=== PATIENT | female | born 2005 | race Two or more races ===

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

== ENCOUNTER 2025-01-06 14:04 | Emergency (ER) | payer OTHER ==
[~2025-01-06] VITALS: Ht 165.1 cm; Wt 71.6 kg
--- NOTE | 2025-01-06 14:41 | ED.PDOC ---
History of Present Illness HPI Comments 19-year-old female with no reported PMHx presents with a chief complaint of abnormal vaginal bleeding x onset this morning while being currently . Patient mentions that she saw an VIDEO AND SOUND RECORDER x 2 weeks ago and was told that she was 7 weeks by US. Patient is . Patient mentions that she was sitting down watching movie when she began to have sudden onset of vaginal bleeding and describes it as spotting with clots. Patient was recently seen here on 12/10/2024 for abdominal cramping. Patient at that time had a HGB of 14 and a Beta HCG at 1741. 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 Family History Family History: Reviewed,noncontributory to illness Social History Smoker: Non-Smoker Alcohol: Denies ETOH Use Drugs: Denies Drug Use Lives In: Home Constitutional: denies: chills, diaphoresis, fatigue, fever, malaise, sweats, weakness, others EENTM: denies: blurred vision, double vision, ear bleeding, ear discharge, ear drainage, ear pain, ear ringing, eye pain, eye redness, hearing loss, mouth pain, mouth swelling, nasal discharge, nose bleeding, nose congestion, nose pain, photophobia, tearing, throat pain, throat swelling, voice changes, others Respiratory: denies: cough, hemoptysis, orthopnea, SOB at rest, shortness of breath, SOB with excertion, stridor, wheezing, others Cardiovascular: denies: chest pain, dizzy spells, diaphoresis, Dyspnea on exertion, edema, irregular heart beat, left arm pain, lightheadedness, palpitations, PND, syncope, others Gastrointestinal: denies: abdomen distended, abdominal pain, blood streaked bowels, constipated, diarrhea, dysphagia, difficulty swallowing, hematemesis, melena, nausea, poor appetite, poor fluid intake, rectal bleeding, rectal pain, vomiting, others Genitourinary: reports: abnormal vagina bleeding, ; denies: burning, dyspareunia, dysuria, flank pain, frequency, hematuria, incontinence, pain, vagina discharge, urgency, others Neurological: denies: dizziness, fainting, headache, left sided numbness, left sided weakness, numbness, paresthesia, pre-existing deficit, right sided numbness, right sided weakness, seizure, speech problems, tingling, tremors, weakness, others Musculoskeletal: denies: back pain, gout, joint pain, joint swelling, muscle pain, muscle stiffness, neck pain, others Integumetry: denies: bruises, change in color, change in hair/nails, dryness, laceration, lesions, lumps, rash, wounds, others Allergic/Immunocompromised: denies: Difficulty Healing, Frequent Infections, Hives, Itching, others Hematologic/Lymphatic: denies: anemia, blood clots, easy bleeding, easy bruising, swollen glands, others Endocrine: denies: excessive hunger, excessive sweating, excessive thirst, excessive urination, flushing, intolerance to cold, intolerance to heat, unexplained weight gain, unexplained weight loss, others Psychiatric: denies: anxiety, bipolar disorder, depression, hopeless, panic disorder, schizophrenia, sleepless, suicidal, others All Other Systems: Reviewed and Negative Physical Exam General Appearance: No Apparent Distress, Normal HEENT: Normal ENT Inspection, Pharynx Normal, TMs Normal Neck: Full Range of Motion, Non-Tender, Normal, Normal Inspection Respiratory: Chest Non-Tender, Lungs Clear, No Accessory Muscle Use, No Respiratory Distress, Normal Breath Sounds Cardiovascular: No Edema, No JVD, No Murmur, No Gallop, Normal Peripheral Pulses, Regular Rate/Rhythm Breast Exam: Deferred Gastrointestinal: No Organomegaly, Non Tender, No Pulsatile Mass, Normal Bowel Sounds, Soft Genitalia: Deferred Pelvic: Deferred Rectal: Deferred Extremities: No calf tenderness, Normal capillary refill, Normal inspection, Normal range of motion, Non-tender, No pedal edema Musculoskeletal : Apperance: Normal Neurologic: Alert, associate counsel II-XII nml as Tested, No Motor Deficits, Normal Affect, Normal Mood, No Sensory Deficits Cerebellar Function: Normal Reflexes: Normal Skin: Dry, Normal Color, Warm Lymphatic: No Adenopathy Was a procedure done? Was a procedure done?: No Differential Dx Considerations may include: threatened ab, incomplete ab, complete ab, inevitable ab X-Ray, Labs, Meds, VS Vital Signs Date Time Temp Pulse Resp B/P (MAP) Pulse Ox O2 Delivery O2 Flow Rate FiO2 01/06/25 14:12 99.5 76 18 127/72 (90) 98 99.5 Lab Test 01/06/25 14:22 Range/Units Urine Color Light-yellow Yellow Urine Clarity Clear Clear Urine pH 7.0 5.0-9.0 Urine Specific [place] 1.010 1.001-1.035 Urine Protein Negative Negative Urine Ketones Negative Negative Urine Blood 1+ H Negative /uL Urine Nitrite Negative Negative Urine Bilirubin Negative Negative Urine Urobilinogen Normal Negative mg/dL Urine Leukocyte Esterase Negative Negative /uL Urine RBC <1 0 - 4 /hpf Urine Microscopic WBC 1 0-5 /HPF Urine Squamous Epithelial Cells Few <5 /hpf Urine Bacteria Few H None Seen /hpf Urine Glucose Normal Normal mg/dL Urine Test Positive Negative Time of 1ST Reevaluation: 15:04 Reevaluation 1ST: Unchanged Time of 2ND Reevaluation: 16:04 Reevaluation 2ND: Resolved Patient Education/Counseling: Diagnosis, Treatment, Prognosis, Need For Follow Up Family Education/Counseling: Diagnosis, Treatment, Prognosis, Need For Follow Up, No Family Present Additional Information Previous visits: DECEMBER 10, 2024 The following tests were ordered, and results were reviewed by me: US OB, UA, TYPE AND SCREEN, CBC, BMP I reviewed and agreed with the following test results read by other providers: RADIOLOGIST I discussed treatment and results with medical personnel and: PATIENT Comprehensive systems review obtained and negative except for what is stated in the HPI. pt declined the US and wants to be discharged. she is now feeling improve. pt has threatened misab and will continue to follow up with her doctor Departure 1 Departure Time of Disposition: 16:05 Impression: Primary Impression: Threatened Disposition: HOME / SELF CARE / HOMELESS Condition: Stable Discharged With: Self, Relative Critical Care Note Critical Care Time?: No Stability Stability form required: No Heart Score Heart Score: Heart Score Response (Comments) Value History N/A 0 EKG N/A 0 Age N/A 0 Risk Factors N/A 0 Troponin N/A 0 Total 0 I personally scribed for OLIVA LAND MD ([email or web address]) on 01/06/25 at 14:41. Electronically submitted by Kwame Barnett ([email or web address]). OLIVA LAND MD Jan 06, 2025 14:41
[2025-01-06 14:56] LABS: Urine Bacteria FEW /hpf (None Seen); Urine Blood 1+ /uL (Negative); Urine Clarity Clear (Clear); Urine Color Light-Yellow (Yellow); Urine Protein, UAD Negative (Negative); Urine Squamous Epithelial Cell FEW /hpf (<5); Urine Urobilinogen Normal (Negative); Urine WBC 1 /HPF (0-5)
--- NOTE | 2025-01-06 17:11 | DVH ---
Ob ultrasound 1st trimester HISTORY: vaginal bleed TECHNIQUE: Real-time ultrasound was performed with sagittal and axial images submitted for evaluation . FINDINGS: Uterus measures 8.7 x 5.5 x 7.3 cm. There is intrauterine gestational sac measuring 2.4 x 1 .8 x 1.9 cm. Adjacent to the sac there is a small subchorionic hemorrhage measuring 1.8 cm in size in the left fun brittanie region Within the sac there is a pole with a crown-rump length of 2 cm. heart rate 174 beats per minute. Right ovary measures 3.7 x 2.9 x 2.7 cm. There is a cyst in the right ovary measuring 2.6 cm possibly corpus luteum cyst Left ovary 2.4 x 1.8 x 1.9 cm without mass There is no free fluid IMPRESSION: 1. 8 week 4 day size pole with positive heart tones. There is a small subchorionic bleed present measuring 1.8 cm 2. Probable corpus luteum cyst right ovary
[2025-01-06 17:21] VITALS: BP 112/76; PULSE 71; RESP 16; TEMP 99; O2SAT 100
== END 2025-01-06 17:25 | disposition home or self-care (01) ==
LOC: ER 14:18
DX: O20.0 Threatened abortion (principal)
CPT/HCPCS: 36415; 76801; 81001; 81025; 84702; 86901

== ENCOUNTER 2025-04-24 09:10 | Emergency (ER) | payer OTHER ==
[~2025-04-24] VITALS: Ht 165.1 cm; Wt 82.0 kg
--- NOTE | 2025-04-24 10:54 | ED.PDOC ---
[employer] HPI Comments HPI: This is a 19 year old female presenting to the ED with chief complaint of abdominal pain during . Patient reports that she is currently 24 weeks and started to experiencing suprapubic abdominal burning with associated hand/feet swelling, nausea, and vomiting since last night. Patient relays that she is a high risk due to having placenta detachment/hemorrhage along with preeclampsia. Patient states that she is following up regularly with her OBGYN, taking her medications as prescribed, and taking her prenatals. Patient notes that she is . Patient denies any vaginal bleeding, dysuria, flank pain, fever, chills, or diarrhea. Denies history of STDs. Initial Vitals BP: 111/68 HR: 105 RR: 16 O2: 96% Temp: 98.8F Past Medical History: Preeclampsia, Thyroid disease, Placenta detachment and hemorrhage Past Surgical History: None Social History: Denies ETOH, smoking, and drug use. Medications: Baby Aspirin Allergies: NKDA BISWAS: ABD PAIN N/V/ 6 MON PREG, HIGH RISK. HPI: Poor Historian. REVIEW OF SYSTEMS: CONSTITUTIONAL: Denies acute: fever, diaphoresis, chills, HEAD: Denies acute: headache, photophobia Eyes: Denies acute: Double vision, vision loss, eye pain, eye discharge. EARS: Denies acute: tinnitus, hearing loss, ear discharge, ear pain, THROAT: Denies acute: sore throat, swelling, difficulty swallowing , pain with swallowing, change in voice. NECK: Denies acute: neck pain, neck swelling, stiff neck. HEART: Denies acute : chest pain, palpitations, LUNGS: Denies acute: SOB, wheezing, cough, hemoptysis ABDOMEN: Denies acute: diarrhea, melena , hematemesis, hematochezia SKIN: Denies acute: rash, redness, lesions, itchiness. EXTREMITIES: Denies acute: calf pain, numbness, tingling, weakness, denies pain in extremity. Denies acute: Low back pain. Neuro: Denies acute: focal neurological deficit, motor or sensory focal neurological deficit, tremors, seizure like activity, confusion, dizziness, change in mental status, loss of bowel or bladder function, cauda equina like symptoms. : Denies acute: dysuria, hematuria, flank pain, increase in urinary frequency. PSYCH: Denies acute: hallucination, suicidal ideation, homicidal ideation. FEMALE: Denies acute: abnormal vaginal bleeding, foul odor, unusual discharge. PHYSICAL EXAM: General: ------[id number]--acute distress, awake and alert. Head: normocephalic, atraumatic. Neck: supple, trachea is midline, no swelling. Throat: Normal phonation. Eyes:, no erythema, no purulent discharge, no proptosis, no icterus. Heart: regular rate, regular rhythm, no significant murmur appreciated. Lungs: no apparent respiratory distress, Able to speak in full sentences. No wheezing, no rhonchi, no crackles. No stridors Clear to auscultation bilaterally. Abdomen: Suprapubic mild tender to palpation, non distended, soft, no guarding, no rebound, + bowel sounds. Neuro: Awake, Alert, oriented to name, self, situation, follows commands GCS=15. Speech is normal. Skin: no petechia, no purpura, no cyanosis, non-pale, not jaundice. Lower extremities: --no - Pitting edema no deformity, no focal swelling, no calf TTP. Makes eye contact. moves all four extremities. Face: no apparent facial droop. Ambulating in the ED independently. No nuchal rigidity, Kernig's sign, Brudzinski's sign, no meningeal signs. ED COURSE: DISCLAIMER: This medical document was created using an electronic medical record system with voice recognition software and computerized dictation system. Although this document has been carefully reviewed, there might still be some phonetic and typographical errors. Occasional wrong-word or "sound-alike" substitutions may have occurred due to the inherent limitations of voice recognition software. These areas are purely typographical due to imperfections of the software programs and do not reflect any compromise in the patient's medical care. Please read the chart carefully and recognize, using context, where these substitutions have occurred. Chief Complaint: Nausea/Vomiting Time Seen by MD: 10:50 Reviewed Notes: Medications, Allergies Allergies: Coded Allergies: NO KNOWN ALLERGIES (Unverified , 10/14/14) Information Source: Patient, Friend Mode of Arrival: Ambulatory Was a procedure done? Was a procedure done?: No X-Ray, Labs, Meds, VS Vital Signs Date Time Temp Pulse Resp B/P (MAP) Pulse Ox O2 Delivery O2 Flow Rate FiO2 04/24/25 10:43 98.7 109 18 103/59 (74) 97 98.7 04/24/25 10:43 109 18 97 Room Air 04/24/25 09:13 98.8 105 16 111/68 96 98.8 Lab Test 04/24/25 11:14 04/24/25 10:55 Range/Units White Blood Count 9.2 4.4-10.8 10^3/uL Red Blood Count 3.70 L 4.0-5.20 10^6/uL Hemoglobin 12.2 12.2-16.2 g/dL Hematocrit 34.0 L 36.0-46.0 % Mean Corpuscular Volume 91.9 80.0-100.0 fL Mean Corpuscular Hemoglobin 32.8 H 28.0-32.0 pg Mean Corpuscular Hemoglobin Concent 35.7 32.0-36.0 g/dL Red Cell Distribution Width 12.5 11.8-14.3 % Platelet Count 390 140-450 10^3/uL Mean Platelet Volume 7.0 6.9-10.8 fL Neutrophils (%) (Auto) 89.9 H 37.0-80.0 % Lymphocytes (%) (Auto) 5.2 L 10.0-50.0 % Monocytes (%) (Auto) 4.8 0.0-12.0 % Eosinophils (%) (Auto) 0.0 0.0-7.0 % Basophils (%) (Auto) 0.1 0.0-2.0 % Neutrophils # (Auto) 8.3 1.6-8.6 10 ^3/uL Lymphocytes # (Auto) 0.5 0.4-5.4 10 ^3/uL Monocytes # (Auto) 0.4 0-1.3 10 ^3/uL Eosinophils # (Auto) 0 0-0.8 10 ^3/uL Basophils # (Auto) 0 0-0.2 10 ^3/uL Nucleated Red Blood Cells 0.0 % Sodium Level 137 136-145 mmol/L Potassium Level 3.3 L 3.5-5.1 mmol/L Chloride Level 106 98-107 mmol/L Carbon Dioxide Level 20 20-31 mmol/L Anion Gap 11 5-15 Blood Urea Nitrogen 7 L 9-23 mg/dL Creatinine 0.46 L 0.550-1.02 mg/dL Glomerular Filtration Rate Calc 141 >90 mL/min BUN/Creatinine Ratio 15.2 10.0-20.0 Serum Glucose 90 74-106 mg/dL Calcium Level 8.6 L 8.7-10.4 mg/dL Total Bilirubin 0.5 0.2-1.0 mg/dL Aspartate Amino Transferase (AST) 17 13-40 U/L Alanine Aminotransferase (ALT) 15 7-40 U/L Alkaline Phosphatase 99 46-116 U/L B-Type Natriuretic Peptide 67.86 0-100 pg/mL Total Protein 6.3 5.7-8.2 g/dL Albumin 4.2 3.2-4.8 g/dL Lipase 30 12-53 U/L Beta HCG, Quantitative Pending Urine Color Yellow Yellow Urine Clarity Turbid H Clear Urine pH 6.5 5.0-9.0 Urine Specific [place] 1.029 1.001-1.035 Urine Protein Trace H Negative Urine Ketones 4+ H Negative Urine Blood Negative Negative /uL Urine Nitrite Negative Negative Urine Bilirubin Negative Negative Urine Urobilinogen Normal Negative mg/dL Urine Leukocyte Esterase 2+ Negative /uL Urine RBC 2 0 - 4 /hpf Urine Microscopic WBC 7 H 0-5 /HPF Urine Squamous Epithelial Cells Mod <5 /hpf Urine Bacteria Few H None Seen /hpf Urine Mucus Few None Seen Urine Glucose Normal Normal mg/dL Current Medications Medications (Trade) Dose Ordered Sig/[facility] Route Start Time Stop Time Status Last Admin Ondansetron HCl (Zofran) 4 mg ONCE ONCE IV 04/24/25 10:45 04/24/25 10:46 DC 04/24/25 11:02 Time of 1ST Reevaluation: 11:50 Reevaluation 1ST: Unchanged Patient Education/Counseling: Diagnosis, Treatment Family Education/Counseling: Diagnosis, Treatment Departure 1 Departure Time of Disposition: 12:45 Impression: Primary Impression: UTI in Additional Impressions: Nausea and vomiting during Intrauterine Disposition: 01 HOME / SELF CARE / HOMELESS Admit to: Tele Condition: Guarded Additional Instructions: Go directly to labor and delivery for further evaluation and treatment. e-Prescriptions Ondansetron Odt 4MG Tab (ZOFRAN PO) 4 Mg Tb 4 MG PO Q8HPRN PRN for 3 Days, #9 TAB ODT TAB-DISSOLVE IN MOUTH, THEN SWALLOW Prov: BERNARDINO ELISE DO 04/24/25 Cephalexin Monohydrate (Cephalexin) 500 Mg Tab 1 TAB PO TID for 5 Days, #15 TAB Prov: BERNARDINO ELISE DO 04/24/25 Critical Care Note Critical Care Time?: No I personally scribed for BERNARDINO ELISE DO ([email or web address]) on 04/24/25 at 10:54. Electronically submitted by Eliezer Jesus ([email or web address]). BERNARDINO ELISE DO Apr 24, 2025 10:54
[2025-04-24] MEDS: ONDANSETRON HCL 4 MG/2 ML VIAL IV ONE (11:02)
[2025-04-24 11:55] LABS: Urine Protein, UAD TRACE (Negative)
--- NOTE | 2025-04-24 12:02 | DVH ---
LIMITED OB ULTRASOUND > 14 WKS: HISTORY: abd pain n/v 6months preg TECHNIQUE: Multiple real-time grayscale images of the gravid uterus with duplex Doppler color flow an d M-mode spectral analysis. TRANSDUCER: Transabdominal COMPARISON: US OB ULTRASOUND COMP LESS 14WKS on DOS: 01/06/25, US OB ULTRASOUND COMP LESS 14WKS on DOS : 12/10/24 FINDINGS: IUP single live fetus at 24 weeks and 0 days based on composite averages of the BPD, head circumferen ce, abdominal circumference and femur length Estimated weight 600 grams heart rate 152 beats per minute JANIS deepest pocket measures 4.1 cm Cervix is closed and measures 3.3 cm Cephalic Presentation Anterior Placenta without previa or abruption. IMPRESSION: IUP single live fetus at 24 weeks and 0 days AUA corresponding to an STANISLAW of 08/14/2025
[2025-04-24 12:09] LABS: Alanine Aminotransferase 15 U/L (7-40); Albumin 4.2 g/dL (3.2-4.8); Alkaline Phosphatase 99 U/L (46-116); Anion Gap 11 (5-15); BUN/Creatinine Ratio 15.2 (10.0-20.0); Bilirubin, Total 0.5 mg/dL (0.2-1.0); Blood Urea Nitrogen 7 mg/dL (9-23); Calcium 8.6 mg/dL (8.7-10.4); Carbon Dioxide 20 mmol/L (20-31); Chloride 106 mmol/L (98-107); Glucose 90 mg/dL (74-106); Lipase 30 U/L (12-53); Potassium 3.3 mmol/L (3.5-5.1); Sodium 137 mmol/L (136-145); Total Protein 6.3 g/dL (5.7-8.2)
[2025-04-24 12:32] LABS: Hematocrit 34.0 % (36.0-46.0); Hemoglobin 12.2 g/dL (12.2-16.2); Mean Corpuscular Hemoglobin 32.8 pg (28.0-32.0); Mean Corpuscular Volume 91.9 fL (80.0-100.0); Nucleated Red Blood Cells % 0.0 %
[2025-04-24] MEDS: cefTRIAXone 1GM/50ML D5W 50 ML IV ONE (12:45)
[2025-04-24] MEDS ORDERED: CEPH500T PO (12:47)
[2025-04-24] MEDS ORDERED: ZOFR4T PO (12:47)
[2025-04-24 12:59] VITALS: BP 101/52; PULSE 100; RESP 18; TEMP 98.1; O2SAT 96
== END 2025-04-24 13:21 | disposition home or self-care (01) ==
LOC: ER 09:10
DX: O23.42 Unspecified infection of urinary tract in pregnancy, second trimester (principal); O21.2 Late vomiting of pregnancy; O00.01 Abdominal pregnancy with intrauterine pregnancy; N39.0 Urinary tract infection, site not specified; Z3A.24 24 weeks gestation of pregnancy
CPT/HCPCS: 36415; 76805; 80053; 81001; 83690; 83880; 84702; 85025; 96365; 96375; 99285; J0696; J2405